=== PATIENT | female | born 2000 | race African-American/Black ===

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

== ENCOUNTER 2019-03-11 14:34 | Emergency (ER) | payer OTHER ==
[~2019-03-11] VITALS: Ht 163.8 cm; Wt 56.7 kg
[2019-03-11] MEDS ORDERED: Morphine Sulfate 2mg/ml Inj(IV/IM USE ONLY) IVP ONE ×2 (15:15→17:00)
[2019-03-11] MEDS ORDERED: Metoclopramide 10mg/2ml Inj IVP ONE ×2 (15:15→17:00)
--- NOTE | 2019-03-11 15:39 | NUR ---
ED Nurse Note: Patient vomited x 1, yellow emesis with undigested food. Provided emesis bag. Addendum: 03/11/19 at 1544 by MATTHEW PA notified and aware.
[2019-03-11 15:43] LABS: BASOPHILS % (AUTO) 0.8 % (0.0-2.0); LYMPHOCYTES % (AUTO) 13.4 % (20.0-45.0); MEAN CORPUSCULAR VOLUME 84 FL (80-99); MONOCYTES % (AUTO) 2.7 % (1.0-10.0); NEUTROPHILS % (AUTO) 83.2 % (45.0-75.0); PLATELET COUNT 277 K/UL (150-450); RED CELL DISTRIBUTION WIDTH 10.2 % (11.6-14.8); WHITE BLOOD COUNT 7.2 K/UL (4.8-10.8)
[2019-03-11 15:45] LABS: ANION GAP 16 mmol/L (5-15); BLOOD UREA NITROGEN 3 mg/dL (7-18); CALCIUM 10.2 MG/DL (8.5-10.1); CARBON DIOXIDE 19 MMOL/L (21-32); CHLORIDE 104 MMOL/L (98-107); CREATININE 0.6 MG/DL (0.55-1.30); POTASSIUM 4.3 MMOL/L (3.5-5.1); SODIUM 139 MMOL/L (136-145)
[2019-03-11 15:49] LABS: ALANINE AMINOTRANSFERASE 12 U/L (12-78); ALBUMIN 4.8 G/DL (3.4-5.0); ALBUMIN/GLOBULIN RATIO 1.3 (1.0-2.7); ALKALINE PHOSPHATASE 59 U/L (46-116); ASPARTATE AMINO TRANSFERASE 14 U/L (15-37); BILIRUBIN,TOTAL 0.5 MG/DL (0.2-1.0)
[2019-03-11 15:50] LABS: APPEARANCE,URINE SLIGHTLY CLOUDY; BILIRUBIN, URINE NEGATIVE (NEGATIVE); COLOR,URINE YELLOW; GLUCOSE, URINE (UA) NEGATIVE (NEGATIVE); KETONES,URINE 4+ (NEGATIVE); LEUKOCYTE ESTERASE ,URINE 1+ (NEGATIVE); NITRITE,URINE NEGATIVE (NEGATIVE); PH,URINE 8 (4.5-8.0); PROTEIN,URINE 1+ (NEGATIVE); UROBILINOGEN,URINE NORMAL MG/DL (0.0-1.0)
--- NOTE | 2019-03-11 15:57 | NUR ---
ED Nurse Note: U/S tech at bedside.
--- NOTE | 2019-03-11 16:43 | Emergency Room Report ---
History of Present Illness General Chief Complaint: Complications Source: Medical Record Present Illness HPI 18-year-old female with history of heavy tobacco smoke ER complaining of abdominal pain and multiple bouts of emesis that started this morning. Patient is 7 weeks and is G1, P0. Patient reports that she has not yet seen an ACOU[facility]IC INTELLIGENCE SPECIALIST and has not started her vitamins. Patient reports that she continues to smoke tobacco and drink alcohol. Patient denies vaginal bleeding and spotting. She reports that she just found out last week that she is last menstrual period was 7 weeks ago. Denies diarrhea, constipation, bloody emesis. Denies fever and chills, syncope, headache and dizziness. Patient is in moderate distress requesting pain medication and reporting that due to multiple bouts of emesis she has increased abdominal pain however denies cramping. Denies chest pain, shortness of breath, palpitation, urinary frequency, vaginal discharge. Is up-to-date with her immunization. Allergies: Coded Allergies: No Known Allergies (Unverified , 11/15/13) Patient History Past Medical History: see triage record Past Surgical History: unable to obtain Pertinent Family History: none Social History: Reports: smoking Last Menstrual Period: 01/31/19 Now: Yes Immunizations: UTD Reviewed Nursing Documentation: PMH: Agreed; PSxH: Agreed Nursing Documentation-PMH Past Medical History: No History, Except For Hx Cardiac Problems: No - Herpes Review of Systems All Other Systems: negative except mentioned in HPI Physical Exam Vital Signs Date Time Temp Pulse Resp B/P (MAP) Pulse Ox O2 Delivery O2 Flow Rate FiO2 03/11/19 14:40 97.5 60 18 113/64 (80) 100 Room Air Sp02 EP Interpretation: reviewed, normal General Appearance: no apparent distress, alert, GCS 15, non-toxic Head: normocephalic, atraumatic Eyes: bilateral eye normal inspection, bilateral eye PERRL ENT: hearing grossly normal, normal pharynx, no angioedema, normal voice Neck: full range of motion, supple/symm/no masses Respiratory: chest non-tender, lungs clear, normal breath sounds, no rhonchi, speaking full sentences Cardiovascular #1: regular rate, rhythm, no edema, no murmur Gastrointestinal: normal bowel sounds, non tender, soft, no mass, no organomegaly, no peritonitis, no bruit, non-distended, no guarding, no rebound, other - Negative McBurney's and Rovsing's Genitourinary: no CVA tenderness Musculoskeletal: back normal, gait/station normal, normal range of motion, non- tender, no calf tenderness Neurologic: alert, oriented x3, responsive, motor strength/tone normal, sensory intact, speech normal Psychiatric: judgement/insight normal, memory normal, mood/affect normal, no suicidal/homicidal ideation Skin: no rash Lymphatic: no adenopathy Medical Decision Making PA Attestation All diagnoses and treatment plans were reviewed and discussed with my supervising physician Dr. Acuna Diagnostic Impression: Primary Impression: Hyperemesis gravidarum Additional Impression: UTI (urinary tract infection) ER Course 18-year-old female with history of heavy tobacco smoke ER complaining of abdominal pain and multiple bouts of emesis that started this morning. Patient is 7 weeks and is G1, P0. Patient reports that she has not yet seen an AC[facility]IC INTELLIGENCE SPECIALIST and has not started her vitamins. Patient reports that she continues to smoke tobacco and drink alcohol. Patient denies vaginal bleeding and spotting. She reports that she just found out last week that she is last menstrual period was 7 weeks ago. Denies diarrhea, constipation, bloody emesis. Denies fever and chills, syncope, headache and dizziness. Patient is in moderate distress requesting pain medication and reporting that due to multiple bouts of emesis she has increased abdominal pain however denies cramping. Denies chest pain, shortness of breath, palpitation, urinary frequency, vaginal discharge. Is up-to-date with her immunization. Ddx considered but are not limited to: appendicitis, cholecystis, gastritis, gastroenteritis, UTI, pyelonephritis, SBO, diverticulitis, influenza with GI manifestation, ectopic , complication with , threatened , abdominal pain during , hyperemesis gravidarum Vital signs: are WNL, pt. is afebrile H&PE are most consistent with: Hyperemesis gravidarum, UTI ORDERS: , OB ultrasound, CBC, UA, tox, beta-hCG, reglan, tylenol , macrobid ED INTERVENTIONS: NS bolus, morphine, Reglan DISCHARGE: At this time pt. is stable for d/c to home. Will provide printed patient care instructions, and any necessary prescriptions. Care plan and follow up instructions have been discussed with the patient prior to discharge. Follow-up with your ACOU[facility] INTELLIGENCE SPECIALIST take medication as directed if worsening symptoms, worsening abdominal pain, syncope, vaginal bleeding or spotting return to the emergency room avoid smoking tobacco drinking alcohol. CT/MRI/US Diagnostic Results CT/MRI/US Diagnostic Results : Imaging Test Ordered: OB US Impression WNL, 7weeks , no subchorionic hemorrhage Last Vital Signs Date Time Temp Pulse Resp B/P (MAP) Pulse Ox O2 Delivery O2 Flow Rate FiO2 03/11/19 15:58 65 18 Room Air 03/11/19 15:57 97.6 03/11/19 14:40 113/64 (80) 100 Disposition: HOME, SELF-CARE Condition: Stable Referrals: [facility] (PCP) Patient Instructions: Hyperemesis Gravidarum, Urinary Tract Infection, Easy-to- Read Additional Instructions: Follow-up with your [facility] INTELLIGENCE SPECIALIST take medication as directed if worsening symptoms, worsening abdominal pain, syncope, vaginal bleeding or spotting return to the emergency room avoid smoking tobacco drinking alcohol. Tad Oneill Mar 11, 2019 16:43
[2019-03-11] MEDS ORDERED: PRENATAL VITAM1 EA10 PO (16:57)
[2019-03-11] MEDS ORDERED: NITROFURANTOIN100 M2 ORAL (16:57)
[2019-03-11] MEDS ORDERED: REGLAN10 MG ORAL (16:57)
[2019-03-11] MEDS ORDERED: ACETAMINOPHEN650 M2 ORAL (16:57)
[2019-03-11 17:13] VITALS: BP 102/52
--- NOTE | 2019-03-11 17:15 | NUR ---
ED Nurse Note: PATIENT IS BEING DISCHARGED FROM MEDICAL CARE. D/C INSTRUCTION AND PRESCRIPTION GIVEN TO PATIENT. REMOVED ID BAND AND IV. ALL QUESTIONS WERE ANSWERED. AMBULATED OUT WITH STEADY GAIT WITH ALL HER BELONGINGS.
--- NOTE | 2019-03-11 17:22 | Diagnostic Imaging Report ---
EXAM: US First Trimester, Transabdominal US , Transvaginal CLINICAL HISTORY: PAIN TECHNIQUE: Real-time transabdominal and transvaginal obstetrical ultrasound of the maternal pelvis and a first trimester with image documentation. Transvaginal imaging was used for better evaluation of the fetus and adnexa. COMPARISON: No relevant prior studies available. FINDINGS: Gestation: Early IUP with a yolk sac. pole and heart tones not yet visualized. Placenta/amniotic fluid: Cannot be adequately evaluated due to the early gestational age. Ovaries: Right ovary measures 2.9 x 2.0 cm. Dominant follicles. No complex lesion or torsion. Left ovary measures 3.6 x 2.2 cm. No complex lesion.. Free fluid: Some free fluid in the pelvis. IMPRESSION: Early IUP with a yolk sac. pole and heart tones not yet visualized. Follow-up.
== END 2019-03-11 17:16 | disposition home or self-care (01) ==
LOC: EMR 15:16
DX: O21.0 Mild hyperemesis gravidarum (principal); Z3A.01 Less than 8 weeks gestation of pregnancy; O23.41 Unspecified infection of urinary tract in pregnancy, first trimester
CPT/HCPCS: 36415; 76801; 76830; 80053; 80307; 80329; 81001; 81025; 84702; 85025; 86850; 86900; 86901; 96361; 96374; 96375; 99284; J2270; J2765

== ENCOUNTER 2019-03-13 11:24 | Emergency (ER) | payer SELFPAY ==
[~2019-03-13] VITALS: Ht 172.7 cm; Wt 56.7 kg
[~2019-03-13 11:24] MED LIST changes: +ACETAMINOPHEN650 M2 ORAL; +NITROFURANTOIN100 M2 ORAL; +PRENATAL VITAM1 EA10 PO; +REGLAN10 MG ORAL
[2019-03-13] MEDS ORDERED: Metoclopramide 10mg/2ml Inj IVP ONE (11:45)
[2019-03-13] MEDS ORDERED: DiphenhydrAMINE 50mg/ml Inj IVP ONE (12:15)
[2019-03-13] MEDS ORDERED: D5 1/2NS w/KCl 20mEq 1,000 ML IV SCH (12:15)
--- NOTE | 2019-03-13 12:18 | NUR ---
Note undone in EDM - 03/13/19 at 1510 by LILLIANA ED Nurse Note: Patient laying in bed semi recumberent. Initially recieved by RN. eyes open spontaneously but patient drowsy. GCS spontaneous eye opening non verbal and no pain response at baseline per EMT/SNF. looks pale, feels warm to touch upper body and cool to touch lower body. Skin slightly moist. Fever reassessment as rteported as 108 by SNF VIA emt, rctal temp obtained by RN. Skin pressure area sore to sacrum, sore to left ear (wers b
--- NOTE | 2019-03-13 12:25 | NUR ---
ED Nurse Note: US tech at the bed side.
[2019-03-13 12:28] LABS: BASOPHILS % (AUTO) 1.3 % (0.0-2.0); HEMATOCRIT 38.3 % (37.0-47.0); HEMOGLOBIN 12.8 G/DL (12.0-16.0); LYMPHOCYTES % (AUTO) 22.4 % (20.0-45.0); MEAN CORPUSCULAR VOLUME 88 FL (80-99); MONOCYTES % (AUTO) 6.1 % (1.0-10.0); NEUTROPHILS % (AUTO) 70.2 % (45.0-75.0); PLATELET COUNT 276 K/UL (150-450); RED BLOOD COUNT 4.38 M/UL (4.20-5.40); RED CELL DISTRIBUTION WIDTH 10.9 % (11.6-14.8); WHITE BLOOD COUNT 6.8 K/UL (4.8-10.8)
[2019-03-13 12:36] LABS: ANION GAP 16 mmol/L (5-15); BLOOD UREA NITROGEN 6 mg/dL (7-18); CALCIUM 9.7 MG/DL (8.5-10.1); CARBON DIOXIDE 19 MMOL/L (21-32); CHLORIDE 106 MMOL/L (98-107); CREATININE 0.6 MG/DL (0.55-1.30); POTASSIUM 3.5 MMOL/L (3.5-5.1); SODIUM 141 MMOL/L (136-145)
[2019-03-13 12:40] LABS: ALANINE AMINOTRANSFERASE 12 U/L (12-78); ALBUMIN 4.5 G/DL (3.4-5.0); ALBUMIN/GLOBULIN RATIO 1.2 (1.0-2.7); ALKALINE PHOSPHATASE 52 U/L (46-116); ASPARTATE AMINO TRANSFERASE 15 U/L (15-37); BILIRUBIN,TOTAL 0.4 MG/DL (0.2-1.0)
--- NOTE | 2019-03-13 12:54 | NUR ---
ED Nurse Note: pt requested for more pain medication. ERMD at bedside.
[2019-03-13] MEDS ORDERED: Capsaicin 0.075% Cream TOPIC ONE (13:00)
--- NOTE | 2019-03-13 13:43 | Emergency Room Report ---
History of Present Illness General Chief Complaint: Complications Source: Patient Present Illness HPI This is a 18-year-old female presented after increased generalized abdominal pain and vomiting. Patient had been at this facility several days ago. She was noted to have increased generalized abdominal discomfort as well as multiple episodes of vomiting. She denies any hematemesis. She had reportedly had ultrasound which showed intrauterine 2 days ago. She denies any fever. She reports having multiple episodes of emesis not associated with diarrhea. Patient denies any fever. She reports having some generalized epigastric pain. This had not migrated.She was unable to localize the pain. Patient states that she smokes marijuana daily. Allergies: Coded Allergies: No Known Allergies (Unverified , 11/15/13) Patient History Past Medical History: see triage record Now: Yes Reviewed Nursing Documentation: PMH: Agreed; PSxH: Agreed Nursing Documentation-PMH Past Medical History: No History, Except For Hx Cardiac Problems: No - Herpes Review of Systems All Other Systems: negative except mentioned in HPI Physical Exam Vital Signs Date Time Temp Pulse Resp B/P (MAP) Pulse Ox O2 Delivery O2 Flow Rate FiO2 03/13/19 11:31 97.7 62 20 100 Room Air Sp02 EP Interpretation: reviewed, normal General Appearance: normal inspection, well appearing, no apparent distress, alert, GCS 15, non-toxic Head: atraumatic ENT: normal ENT inspection, hearing grossly normal, normal voice Neck: normal inspection, full range of motion, supple, no bony tend Respiratory: normal inspection, lungs clear, normal breath sounds, no respiratory distress, no retraction, no wheezing Cardiovascular #1: regular rate, rhythm, no edema Gastrointestinal: normal inspection, normal bowel sounds, non tender, soft, no guarding, no hernia Genitourinary: no CVA tenderness Musculoskeletal: normal inspection, back normal, normal range of motion Neurologic: normal inspection, alert, oriented x3, responsive, insole bottom filler III-XII nml as tested, speech normal Psychiatric: normal inspection, judgement/insight normal, mood/affect normal Medical Decision Making Diagnostic Impression: Primary Impression: Hyperemesis gravidarum ER Course Patient presented for abdominal pain. Differential diagnoses included ischemic bowel, appendicitis, perforated viscus, abdominal aortic aneurysm, inferior myocardial infarction, viral gastroenteritis among others. Because of complexity of patient's case laboratory testing and imaging studies were ordered. Patient was noted to have initial emesis. She was started on IV fluids. Patient was also noted to have some chronic marijuana use. This may represent marijuana induced hyperemesis in addition to related to hyperemesis. Patient was given capsaicin cream as well as Benadryl and Pepcid. She was noted to have some improvement.Patient was advised to discontinue smoking marijuana. Patient advised to return if she began having persistent vomiting or other concerns. She was given prescription for Zofran. Labs Test 03/13/19 11:50 White Blood Count 6.8 K/UL (4.8-10.8) Red Blood Count 4.38 M/UL (4.20-5.40) Hemoglobin 12.8 G/DL (12.0-16.0) Hematocrit 38.3 % (37.0-47.0) Mean Corpuscular Volume 88 FL (80-99) Mean Corpuscular Hemoglobin 29.2 PG (27.0-31.0) Mean Corpuscular Hemoglobin Concent 33.4 G/DL (32.0-36.0) Red Cell Distribution Width 10.9 % (11.6-14.8) Platelet Count 276 K/UL (150-450) Mean Platelet Volume 5.6 FL (6.5-10.1) Neutrophils (%) (Auto) 70.2 % (45.0-75.0) Lymphocytes (%) (Auto) 22.4 % (20.0-45.0) Monocytes (%) (Auto) 6.1 % (1.0-10.0) Eosinophils (%) (Auto) 0.0 % (0.0-3.0) Basophils (%) (Auto) 1.3 % (0.0-2.0) Prothrombin Time 10.9 SEC (9.30-11.50) Prothromb Time International Ratio 1.0 (0.9-1.1) Activated Partial Thromboplast Time 26 SEC (23-33) Sodium Level 141 MMOL/L (136-145) Potassium Level 3.5 MMOL/L (3.5-5.1) Chloride Level 106 MMOL/L (98-107) Carbon Dioxide Level 19 MMOL/L (21-32) Anion Gap 16 mmol/L (5-15) Blood Urea Nitrogen 6 mg/dL (7-18) Creatinine 0.6 MG/DL (0.55-1.30) Estimat Glomerular Filtration Rate > 60 mL/min (>60) Glucose Level 101 MG/DL (74-106) Calcium Level 9.7 MG/DL (8.5-10.1) Total Bilirubin 0.4 MG/DL (0.2-1.0) Aspartate Amino Transf (AST/SGOT) 15 U/L (15-37) Alanine Aminotransferase (ALT/SGPT) 12 U/L (12-78) Alkaline Phosphatase 52 U/L (46-116) Total Protein 8.4 G/DL (6.4-8.2) Albumin 4.5 G/DL (3.4-5.0) Globulin 3.9 g/dL Albumin/Globulin Ratio 1.2 (1.0-2.7) Lipase 78 U/L (73-393) Human Chorionic Gonadotropin, Quant 03174 mIU/mL (1-6) Last Vital Signs Date Time Temp Pulse Resp B/P (MAP) Pulse Ox O2 Delivery O2 Flow Rate FiO2 03/13/19 11:31 97.7 62 20 100 Room Air Status: improved Disposition: HOME, SELF-CARE Condition: Stable Scripts Ondansetron Odt* (ZOFRAN ODT*) 4 Mg Tab.rapdis 4 MG BC EVERY 8 HOURS PRN for Nausea & Vomiting, #10 TAB 0 Refills Prov: Morenita Hitchcock 03/13/19 Referrals: NON PHYSICIAN (PCP) Patient Instructions: Hyperemesis Gravidarum Tristian Bryant MD Mar 13, 2019 13:43
--- NOTE | 2019-03-13 13:43 | Diagnostic Imaging Report ---
EXAM: US Abdomen Complete CLINICAL HISTORY: PAIN TECHNIQUE: Real-time ultrasound of the abdomen (complete) with image documentation. COMPARISON: None FINDINGS: Liver: Measures 12.4 cm. Normal echotexture and contour. No focal lesion. Portal vein: Patent with normal direction of flow. Gallbladder: Normal. No wall thickening or pericholecystic fluid. No stone or sludge. Negative sonographic Morel's sign. Biliary tree: No abnormal dilatation. Common bile duct measures 3.7 mm. Pancreas: Visualized portions are unremarkable. Spleen: Normal, measuring 7.5 cm. No focal lesion. Right kidney: Measures 11.3 cm in length. No hydronephrosis or stone. No mass. Left kidney: Measures 11.2 cm in length. No hydronephrosis or stone. No mass. Peritoneal space: Normal. No free fluid. Aorta: Visualized portions are unremarkable. IVC: Visualized portions are unremarkable. IMPRESSION: Normal abdominal ultrasound.
[2019-03-13] MEDS ORDERED: ONDANSETRON ODT4 MG BC ×3 (14:14→16:41)
[2019-03-13 14:59] VITALS: BP 107/55
--- NOTE | 2019-03-13 15:01 | NUR ---
ER DISCHARGE NOTE: Patient is cleared to be discharged per ERMD with familiy member, pt is aox4, on room air, with stable vital signs. pt was given dc and prescription instructions, pt was able to verbalize understanding, pt id band and iv site removed without complications. pt is able to ambulate with steady gait. pt took all belongings.
== END 2019-03-13 15:02 | disposition home or self-care (01) ==
LOC: EMR 12:40
DX: O21.0 Mild hyperemesis gravidarum (principal); Z3A.01 Less than 8 weeks gestation of pregnancy; O99.321 Drug use complicating pregnancy, first trimester; F12.10 Cannabis abuse, uncomplicated
CPT/HCPCS: 36415; 76700; 80053; 83690; 84702; 85025; 85610; 85730; 86850; 86900; 86901; 96361; 96365; 96375; 99284; J1200; J2765; S0028

== ENCOUNTER 2019-03-13 21:21 | Inpatient (IN) | payer MEDICAID ==
[~2019-03-13] VITALS: Ht 162.6 cm; Wt 59.0 kg
[~2019-03-13 21:21] MED LIST changes: +ONDANSETRON ODT4 MG BC
[2019-03-13 21:39] VITALS: BP 119/63
--- NOTE | 2019-03-13 21:39 | NUR ---
ED Nurse Note: , patient is aggitated, and is accompanied by boyfriend.
--- NOTE | 2019-03-13 21:39 | NUR ---
ED Nurse Note: timoteo
--- NOTE | 2019-03-13 21:39 | NUR ---
ED Nurse Note: Walk-in patient with complaints of recurrent abdominal pain and emesis with pregnan
[2019-03-13] MEDS ORDERED: Potassium Chloride 10 MEQ in D5 1/2NS 1,000 ML IV SCH (22:00)
[2019-03-13] MEDS ORDERED: D5NS 1,000 ML IV SCH (22:15)
[2019-03-13] MEDS ORDERED: Morphine Sulfate 2mg/ml Inj(IV/IM USE ONLY) IVP ONE (22:30)
[2019-03-13 22:58] LABS: BASOPHILS % (AUTO) 0.9 % (0.0-2.0); HEMATOCRIT 34.7 % (37.0-47.0); HEMOGLOBIN 12.3 G/DL (12.0-16.0); LYMPHOCYTES % (AUTO) 19.7 % (20.0-45.0); MEAN CORPUSCULAR VOLUME 84 FL (80-99); MONOCYTES % (AUTO) 5.2 % (1.0-10.0); NEUTROPHILS % (AUTO) 74.1 % (45.0-75.0); PLATELET COUNT 279 K/UL (150-450); RED BLOOD COUNT 4.15 M/UL (4.20-5.40); RED CELL DISTRIBUTION WIDTH 10.3 % (11.6-14.8); WHITE BLOOD COUNT 12.6 K/UL (4.8-10.8)
--- NOTE | 2019-03-13 23:02 | NUR ---
ED Nurse Note: Patient tolerated medication administration well, IV fluids hung, all blood and urine collections sent down to lab, will continue to monitor. Vital signs stable and documented.
[2019-03-13 23:03] VITALS: BP 108/68
[2019-03-13 23:06] LABS: BILIRUBIN, URINE NEGATIVE (NEGATIVE); COLOR,URINE PALE YELLOW; GLUCOSE, URINE (UA) NEGATIVE (NEGATIVE); KETONES,URINE 4+ (NEGATIVE); LEUKOCYTE ESTERASE ,URINE 1+ (NEGATIVE); NITRITE,URINE NEGATIVE (NEGATIVE); PH,URINE 8 (4.5-8.0); PROTEIN,URINE NEGATIVE (NEGATIVE); UROBILINOGEN,URINE NORMAL MG/DL (0.0-1.0)
[2019-03-13 23:19] LABS: ANION GAP 15 mmol/L (5-15); BLOOD UREA NITROGEN 3 mg/dL (7-18); CALCIUM 9.6 MG/DL (8.5-10.1); CARBON DIOXIDE 20 MMOL/L (21-32); CHLORIDE 100 MMOL/L (98-107); CREATININE 0.6 MG/DL (0.55-1.30); POTASSIUM 3.8 MMOL/L (3.5-5.1); SODIUM 135 MMOL/L (136-145)
[2019-03-13 23:21] LABS: APPEARANCE,URINE CLEAR
[2019-03-13 23:24] LABS: ALANINE AMINOTRANSFERASE 12 U/L (12-78); ALBUMIN 4.6 G/DL (3.4-5.0); ALBUMIN/GLOBULIN RATIO 1.1 (1.0-2.7); ALKALINE PHOSPHATASE 59 U/L (46-116); ASPARTATE AMINO TRANSFERASE 20 U/L (15-37); BILIRUBIN,TOTAL 0.7 MG/DL (0.2-1.0)
[2019-03-14] MEDS ORDERED: Metoclopramide 10mg/2ml Inj IVP ONE
[2019-03-14] MEDS: DiphenhydrAMINE 50mg/ml Inj IVP ONE ×2 (00:06→00:11)
--- NOTE | 2019-03-14 00:18 | NUR ---
ED Nurse Note: Called and gave report to Vita LOW.
[2019-03-14 00:25] VITALS: BP 121/77
--- NOTE | 2019-03-14 00:45 | NUR ---
NURSE NOTES: Received report from MARANDA Ellis in ED. Patient arrived to the unit by nic. Awake and alert x4. Stable condition. On room air with no signs of distress or SOB. Skin is intact. Belongings checked with patient. Left AC IV is intact and running fluids. Bed locked and in lowest position with call light in easy reach. Boyfriend at bedside. Orders received from Dr. Gutierrez and carried out. Patient c/o pain 01/19. Will administer pain medication as ordered. VS - BP:121/77 RR:18 02:100% HR:55 T:99.3
[2019-03-14] MEDS: Morphine Sulfate 2mg/ml Inj(IV/IM USE ONLY) IVP PRN ×3 (01:11→10:52)
[2019-03-14] MEDS: D5NS 1,000 ML IV SCH ×2 (01:11→10:52)
[2019-03-14 04:00] VITALS: BP 117/73
[2019-03-14] MEDS: Metoclopramide 10mg/2ml Inj IVP PRN ×2 (04:31→09:09)
--- NOTE | 2019-03-14 07:31 | NUR ---
HAND-OFF: Report given to MARANDA Cosme. Patient in stable condition.
[2019-03-14 07:32] LABS: BASOPHILS % (AUTO) 0.8 % (0.0-2.0); EOSINOPHILS % (AUTO) 0.1 % (0.0-3.0); HEMATOCRIT 28.6 % (37.0-47.0); HEMOGLOBIN 10.2 G/DL (12.0-16.0); LYMPHOCYTES % (AUTO) 23.9 % (20.0-45.0); MEAN CORPUSCULAR VOLUME 84 FL (80-99); MONOCYTES % (AUTO) 8.5 % (1.0-10.0); NEUTROPHILS % (AUTO) 66.7 % (45.0-75.0); PLATELET COUNT 230 K/UL (150-450); RED BLOOD COUNT 3.42 M/UL (4.20-5.40); RED CELL DISTRIBUTION WIDTH 10.1 % (11.6-14.8); WHITE BLOOD COUNT 10.5 K/UL (4.8-10.8)
[2019-03-14 07:50] LABS: ALANINE AMINOTRANSFERASE 12 U/L (12-78); ALBUMIN 3.5 G/DL (3.4-5.0); ALBUMIN/GLOBULIN RATIO 1.1 (1.0-2.7); ALKALINE PHOSPHATASE 43 U/L (46-116); ANION GAP 13 mmol/L (5-15); ASPARTATE AMINO TRANSFERASE 13 U/L (15-37); BILIRUBIN,TOTAL 0.5 MG/DL (0.2-1.0); BLOOD UREA NITROGEN 1 mg/dL (7-18); CALCIUM 8.5 MG/DL (8.5-10.1); CARBON DIOXIDE 20 MMOL/L (21-32); CHLORIDE 107 MMOL/L (98-107); CREATININE 0.5 MG/DL (0.55-1.30); POTASSIUM 3.2 MMOL/L (3.5-5.1); SODIUM 140 MMOL/L (136-145)
[2019-03-14 08:00] VITALS: BP 128/71
--- NOTE | 2019-03-14 08:59 | History & Physical ---
History and Physical History & Physicial seen and examined. Dictation completed 1- Hyperemesis Gravidarum Plan: medically stable Defer to Anne Marie Bran MD Mar 14, 2019 08:59
[2019-03-14] MEDS ORDERED: Ketorolac 30mg Inj IV SCH (09:00)
--- NOTE | 2019-03-14 09:00 | NUR ---
NURSE NOTES: Patient in bed awake and able to verbalize needs.. Stable. Denies pain or SOB. Patient encouraged to use call light for assistance, verbalized understanding. Patient in bed in locked and lowest position with call light within reach. Will continue to monitor.
--- NOTE | 2019-03-14 10:06 | Emergency Room Report ---
History of Present Illness General Chief Complaint: Nausea Source: Patient Present Illness HPI The patient presents with persistent vomiting and nausea. She is . She been evaluated 2 times before in the emergency department. An ultrasound was performed previously. She alleges that she has no medication to treat the nausea at this time. The pain is rated 10/10 diffuse in her abdomen but more in the epigastric region. She denies fevers or chills. She feels weak when she stands up. She denies vaginal bleeding. There are no rashes or painful lesions. This is the assesment 03/11: 18-year-old female with history of heavy tobacco smoke ER complaining of abdominal pain and multiple bouts of emesis that started this morning. Patient is 7 weeks and is G1, P0. Patient reports that she has not yet seen an SALES ASSISTANT DISPLAYS and has not started her vitamins. Patient reports that she continues to smoke tobacco and drink alcohol. Patient denies vaginal bleeding and spotting. She reports that she just found out last week that she is last menstrual period was 7 weeks ago. Denies diarrhea, constipation, bloody emesis. Denies fever and chills, syncope, headache and dizziness. Patient is in moderate distress requesting pain medication and reporting that due to multiple bouts of emesis she has increased abdominal pain however denies cramping. Denies chest pain, shortness of breath, palpitation, urinary frequency, vaginal discharge. Is up-to-date with her immunization. Ddx considered but are not limited to: appendicitis, cholecystis, gastritis, gastroenteritis, UTI, pyelonephritis, SBO, diverticulitis, influenza with GI manifestation, ectopic , complication with , threatened , abdominal pain during , hyperemesis gravidarum Vital signs: are WNL, pt. is afebrile H&PE are most consistent with: Hyperemesis gravidarum, UTI ORDERS: , OB ultrasound, CBC, UA, tox, beta-hCG, reglan, tylenol , macrobid ED INTERVENTIONS: NS bolus, morphine, Reglan Ultrasound: IMPRESSION: Early IUP with a yolk sac. pole and heart tones not yet visualized. Follow-up. This is the assessment earlier today: Patient presented for abdominal pain. Differential diagnoses included ischemic bowel, appendicitis, perforated viscus, abdominal aortic aneurysm, inferior myocardial infarction, viral gastroenteritis among others. Because of complexity of patient's case laboratory testing and imaging studies were ordered. Patient was noted to have initial emesis. She was started on IV fluids. Patient was also noted to have some chronic marijuana use. This may represent marijuana induced hyperemesis in addition to related to hyperemesis. Patient was given capsaicin cream as well as Benadryl and Pepcid. She was noted to have some improvement.Patient was advised to discontinue smoking marijuana. Patient advised to return if she began having persistent vomiting or other concerns. She was given prescription for Zofran. Ultrasound abd: IMPRESSION: Normal abdominal ultrasound. Patient has a history of genital herpes and does not want significant other to know. No fevers, chills, sore throat, chest pain, palpitations,diarrhea, dysuria, shortness of breath, joint pain, rashes, depression, anxiety, visual changes, headache. Allergies: Coded Allergies: No Known Allergies (Unverified , 11/15/13) Patient History Past Medical History: see triage record, old chart reviewed Social History: Reports: smoking, drug use - THC Social History Narrative With significant other Now: Yes - 7 WEEKS Reviewed Nursing Documentation: PMH: Agreed; PSxH: Agreed Nursing Documentation-PMH Past Medical History: No History, Except For Hx Cardiac Problems: No Review of Systems All Other Systems: negative except mentioned in HPI Physical Exam Vital Signs Date Time Temp Pulse Resp B/P (MAP) Pulse Ox O2 Delivery O2 Flow Rate FiO2 03/13/19 21:34 98.2 64 22 119/63 (81) 100 Room Air Sp02 EP Interpretation: reviewed, normal General Appearance: well appearing, no apparent distress, GCS 15, non-toxic, other - On cell phone Head: normocephalic Eyes: bilateral eye normal inspection, bilateral eye PERRL, bilateral eye EOMI ENT: moist mucus membranes Neck: supple Respiratory: lungs clear, normal breath sounds Cardiovascular #1: regular rate, rhythm Cardiovascular #2: 2+ radial (R) Gastrointestinal: normal inspection, normal bowel sounds, no mass, non- distended, no guarding, no rebound, tenderness - Diffuse Genitourinary: no CVA tenderness Musculoskeletal: back normal, gait/station normal, normal range of motion Neurologic: alert, oriented x3, grossly normal Psychiatric: mood/affect normal, other - Slightly demanding Skin: no rash Medical Decision Making Diagnostic Impression: Primary Impression: Hyperemesis gravidarum Additional Impressions: Nausea and vomiting in 7 weeks gestation of ER Course Patient presents with persistent vomiting unable to keep down liquids and abdominal pain. Differential includes hyperemesis gravidarum, electrolyte imbalance, threatened miscarriage amongst others. The patient will be evaluated with labs. Ultrasound previously performed. Abdomen is nonsurgical at this time. The patient will be treated with normal saline, D5 normal saline , small dose of morphine with continued IV hydration. Imaging is not necessary as it was recently done. Labs significant for leukocytosis. Also urine with positive ketones. Prior urinalysis looks like contaminated specimen. Patient continues with nausea and Reglan and Benadryl are administered. Pain is improved. Due to the presence of hyperemesis gravidarum with ketonuria patient is admitted to the hospital for continued IV hydration and treatment with medication. Admit to Dr. Gutierrez. Consultation requested of . Laboratory Tests Test 03/13/19 22:09 03/13/19 22:15 03/14/19 05:10 White Blood Count 12.6 K/UL (4.8-10.8) #H 10.5 K/UL (4.8-10.8) Red Blood Count 4.15 M/UL (4.20-5.40) L 3.42 M/UL (4.20-5.40) L Hemoglobin 12.3 G/DL (12.0-16.0) 10.2 G/DL (12.0-16.0) L Hematocrit 34.7 % (37.0-47.0) L 28.6 % (37.0-47.0) L Mean Corpuscular Volume 84 FL (80-99) 84 FL (80-99) Mean Corpuscular Hemoglobin 29.7 PG (27.0-31.0) 29.9 PG (27.0-31.0) Mean Corpuscular Hemoglobin Concent 35.5 G/DL (32.0-36.0) 35.8 G/DL (32.0-36.0) Red Cell Distribution Width 10.3 % (11.6-14.8) L 10.1 % (11.6-14.8) L Platelet Count 279 K/UL (150-450) 230 K/UL (150-450) Mean Platelet Volume 5.6 FL (6.5-10.1) L 5.5 FL (6.5-10.1) L Neutrophils (%) (Auto) 74.1 % (45.0-75.0) 66.7 % (45.0-75.0) Lymphocytes (%) (Auto) 19.7 % (20.0-45.0) L 23.9 % (20.0-45.0) Monocytes (%) (Auto) 5.2 % (1.0-10.0) 8.5 % (1.0-10.0) Eosinophils (%) (Auto) 0.0 % (0.0-3.0) 0.1 % (0.0-3.0) Basophils (%) (Auto) 0.9 % (0.0-2.0) 0.8 % (0.0-2.0) Sodium Level 135 MMOL/L (136-145) L 140 MMOL/L (136-145) Potassium Level 3.8 MMOL/L (3.5-5.1) 3.2 MMOL/L (3.5-5.1) L Chloride Level 100 MMOL/L (98-107) 107 MMOL/L (98-107) Carbon Dioxide Level 20 MMOL/L (21-32) L 20 MMOL/L (21-32) L Anion Gap 15 mmol/L (5-15) 13 mmol/L (5-15) Blood Urea Nitrogen 3 mg/dL (7-18) L 1 mg/dL (7-18) L Creatinine 0.6 MG/DL (0.55-1.30) 0.5 MG/DL (0.55-1.30) L Estimate Glomerular Filtration Rate > 60 mL/min (>60) > 60 mL/min (>60) Glucose Level 97 MG/DL (74-106) 106 MG/DL (74-106) Calcium Level 9.6 MG/DL (8.5-10.1) 8.5 MG/DL (8.5-10.1) Total Bilirubin 0.7 MG/DL (0.2-1.0) 0.5 MG/DL (0.2-1.0) Aspartate Amino Transferase (AST) 20 U/L (15-37) 13 U/L (15-37) L Alanine Aminotransferase (ALT) 12 U/L (12-78) 12 U/L (12-78) Alkaline Phosphatase 59 U/L (46-116) 43 U/L (46-116) L Total Protein 8.8 G/DL (6.4-8.2) H 6.6 G/DL (6.4-8.2) Albumin 4.6 G/DL (3.4-5.0) 3.5 G/DL (3.4-5.0) Globulin 4.2 g/dL 3.1 g/dL Albumin/Globulin Ratio 1.1 (1.0-2.7) 1.1 (1.0-2.7) Lipase 90 U/L (73-393) Urine Color Pale yellow Urine Appearance Clear Urine pH 8 (4.5-8.0) Urine Specific [place] 1.015 (1.005-1.035) Urine Protein Negative (NEGATIVE) Urine Glucose (UA) Negative (NEGATIVE) Urine Ketones 4+ (NEGATIVE) H Urine Blood Negative (NEGATIVE) Urine Nitrite Negative (NEGATIVE) Urine Bilirubin Negative (NEGATIVE) Urine Urobilinogen Normal MG/DL (0.0-1.0) Urine Leukocyte Esterase 1+ (NEGATIVE) H Urine RBC 0-2 /HPF (0 - 2) Urine WBC 0-2 /HPF (0 - 2) Urine Squamous Epithelial Cells Few /LPF (NONE/OCC) Urine Bacteria None /HPF (NONE) Human Chorionic Gonadotropin, Qual Positive (NEGATIVE) CT/MRI/US Diagnostic Results CT/MRI/US Diagnostic Results : Imaging Test Ordered: Ultrasound pelvic and abdomen Impression See prior reports and history Last Vital Signs Date Time Temp Pulse Resp B/P (MAP) Pulse Ox O2 Delivery O2 Flow Rate FiO2 03/14/19 04:00 97.6 61 18 117/73 (88) 99 03/14/19 00:59 Room Air Status: improved Disposition: ADMITTED INPATIENT Condition: Serious Referrals: NON PHYSICIAN (PCP) Kevin Acuna MD Mar 14, 2019 10:06
[2019-03-14 12:00] VITALS: BP 127/69
[2019-03-14] MEDS ORDERED: LR 1000ml 1,000 ML IV ONE (12:45)
[2019-03-14] MEDS ORDERED: LR 1000ml 1,000 ML IV SCH (12:45)
--- NOTE | 2019-03-14 13:15 | NUR ---
NURSE NOTES: Patient discharged home as ordered. Stable. Denies pain. Patient given thorough discharge instructions by RN. patient verbalized understanding. Patient stated that she will see her manager global tomorrow. Patient has all belongings. Patient assisted outside with significant other. No IV access. Patient sent home with information on and hyperemesis. Skin is clean, dry, and intact.
--- NOTE | 2019-03-14 16:30 | History and Physical Report ---
DATE OF ADMISSION: 03/13/2019 SOURCE OF INFORMATION: Patient and EMR. HISTORY OF PRESENT ILLNESS: The patient is a 18-year-old female. The patient reportedly is and is suffering from intolerable nausea and vomitus for the last 3 to 4 days. The patient reported adequate intake and could not hold any liquid given decrease in her stomach. Denies any hematemesis, denies any diarrhea. Denies any abdominal pain. Denies any bleeding per vagina. Initial vital signs in the emergency room shows a stable vital signs. Initial blood work shows leukocytosis, otherwise unremarkable. REVIEW OF SYSTEMS: All 14 elements of review of systems reviewed as above. PAST MEDICAL HISTORY: Unremarkable. PAST SURGICAL HISTORY: Denies. OUTPATIENT MEDICATIONS: Denies. ALLERGIES: NKDA. SOCIAL HISTORY: Reported . Denies history of illicit drug abuse. PHYSICAL EXAMINATION: VITAL SIGNS: Blood pressure 120/80, temperature 98.2, pulse oximetry 98% on room air, respiratory rate 18, temperature 98.2. HEAD AND NECK: Atraumatic, normocephalic. CHEST: Clear to auscultation. HEART: S1, S2. Regular rate and rhythm. ABDOMEN: Soft. No organomegaly. LABORATORY DATA: Dated 03/13/2019, WBC 12.6, hemoglobin 12.3. Sodium 135, BUN 3. ASSESSMENT: 1. Hyperemesis gravidarum. 2. Hyponatremia. 3. Leukocytosis with no evidence of active infection. PLAN OF CARE: The patient remains medically stable. I agree with the NPO, continue with IV hydration. OB has already been notified. We will follow. Anne Marie Gutierrez M.D. DR: TATIANNA JOB#: [id number] CC:
--- NOTE | 2019-03-15 07:43 | Discharge Summary ---
Discharge Summary Discharge Summary _ DATE OF ADMISSION: 03/13/2019 DATE OF DISCHARGE: 03/14/2019 DISCHARGED BY: Dr. Gutierrez REASON FOR ADMISSION: 18 years old female with unremarkable past medical history, reported being and suffering from intolerable nausea and vomiting for the last 3 to 4 days. Patient could not hold any liquids or food. She denies hematemesis , she denied diarrhea ,she denied blood in the stool. She denied abdominal pain . She denied vaginal bleeding . No fevers, no chills. No chest pain or shortness of breath . No dysuria . Initial vital signs in the emergency room were stable. Laboratory work-up revealed mild leukocytosis with WBC 12.6 , stable hemoglobin and hematocrit. Na-135. Stable renal parameters. Urinalysis revealed no evidence of urinary tract infection , but was positive for ketones. Abdominal ultrasound was stable. Patient received antiemetics in ED. Due to presence of hyperemesis gravidarum with ketonuria patient was admitted to the hospital for IV hydration. HOSPITAL COURSE: Patient admitted to medical surgical floor and started on IV hydration. Obstetrical ultrasound , done on her prior visit to ED on 03/12, for the same reason, revealed early intrauterine with a yolk sac. pole and heart tones were not yet visualized. HCG on 03/14 was positive. Patient was hydrated with IV hydration. Antiemetic provided as needed. Diet slowly started as tolerated. Vital signs remained stable. With IV hydration sodium from 135 up to 140. Leukocytosis resolved, likely was reactive. Patient remained afebrile. Patient was able to tolerate diet in small amounts. Patient was cleared for discharge home. Outpatient follow-up with HEAD OF HISTORY in the morning. Due to rapid and unexpected improvement in patient condition , patient was discharged in 1 day. FINAL DIAGNOSES: Hyperemesis gravidarum Hyponatremia Leukocytosis with no evidence of active infection-resolved DISCHARGE MEDICATIONS: See Medication Reconciliation list. DISCHARGE INSTRUCTIONS: Patient was discharged home. Patient was encouraged to see [facility] doctor in the morning. I have been assigned to dictate discharge summary for this account. I was not involved in the patient's management. Gabbi Evangelista NP Mar 15, 2019 07:43
== END 2019-03-14 13:15 | disposition home or self-care (01) | DRG 566 ==
LOC: EMR 21:49 → 3E 22:50 → EDBEDREQ 23:41
DX: O21.1 Hyperemesis gravidarum with metabolic disturbance (principal); Z3A.01 Less than 8 weeks gestation of pregnancy
CPT/HCPCS: 36415; 80053; 81003; 83690; 84703; 85025; 96361; 96365; 96375; 99285; J2765

== ENCOUNTER 2019-03-15 05:15 | Inpatient (IN) | payer MEDICAID ==
[~2019-03-15] VITALS: Ht 162.6 cm; Wt 57.6 kg
--- NOTE | 2019-03-15 05:38 | Emergency Room Report ---
History of Present Illness General Chief Complaint: Complications Source: Patient (Eladio Singh MD) Present Illness HPI This is a 18-year-old female who is primigravida. She is approximately 7 weeks . She presents with chief complaint abdominal pain with nausea and vomiting. This is an ongoing issue with this . She been him several times for this already. She was admitted and was just discharged. She presents with abdominal pain with multiple episode of vomiting. Unable to keep anything down. Has cramps and severe pain. Pain is 10 out of 10. Vomiting is nonbloody nonbilious. No diarrhea. Similar symptom in the past. She had ultrasound here already. (Eladio Singh MD) Allergies: Coded Allergies: No Known Allergies (Unverified , 11/15/13) Patient History Past Medical History: see triage record, old chart reviewed Past Surgical History: none Pertinent Family History: none Social History: Reports: drug use - marijuana; Denies: smoking Now: Yes - 7 weeks Immunizations: UTD Reviewed Nursing Documentation: PMH: Agreed; PSxH: Agreed (Eladio Singh MD) Nursing Documentation-PMH Past Medical History: No History, Except For (Eladio Singh MD) Review of Systems Eye: Denies: eye pain, blurred vision ENT: Denies: ear pain, nose congestion, throat swelling Respiratory: Denies: cough, shortness of breath Cardiovascular: Denies: chest pain, palpitations Gastrointestinal: Reports: abdominal pain, nausea, vomiting; Denies: diarrhea Musculoskeletal: Denies: back pain, joint pain Skin: Denies: rash Neurological: Denies: headache, numbness Endocrine: Denies: increased thirst, increased urine Hematologic/Lymphatic: Denies: easy bruising All Other Systems: negative except mentioned in HPI (Eladio Singh MD) Physical Exam Vital Signs Date Time Temp Pulse Resp B/P (MAP) Pulse Ox O2 Delivery O2 Flow Rate FiO2 03/15/19 05:17 98.2 59 16 131/78 (95) 96 Room Air Vitals normal Sp02 EP Interpretation: reviewed, normal General Appearance: well appearing, no apparent distress, alert Head: normocephalic, atraumatic Eyes: bilateral eye PERRL, bilateral eye EOMI ENT: hearing grossly normal, normal pharynx Neck: full range of motion, supple, no meningismus Respiratory: chest non-tender, lungs clear, normal breath sounds Cardiovascular #1: regular rate, rhythm, no murmur Gastrointestinal: no mass, no organomegaly, no bruit, non-distended, tenderness - Mild diffuse, decreased bowel sounds Musculoskeletal: back normal, gait/station normal, normal range of motion Neurologic: alert, oriented x3 Psychiatric: anxious (Eladio Singh MD) Medical Decision Making Diagnostic Impression: Primary Impression: Hyperemesis gravidarum Additional Impressions: Acute hypokalemia Abdominal pain Qualified Codes: R10.84 - Generalized abdominal pain ER Course Patient presents with hyperemesis gravidarum. Her beta-hCG is elevated but ultrasound only showed a gestational sac. My bedside ultrasound also showed just as of gestational sac. Did not see any heartbeat. This may be very early in the versus blighted ovum versus molar . I will repeat a pelvic ultrasound. Labs pending. Vomiting and pain improved after hydration, Reglan and morphine. If patient unable to keep anything down, will need admission. I will sign this patient out to Dr. Sharma. (Eladio Singh MD) ER Course Please refer to the initial note for the history exam and presentation on reevaluation patient still remains significantly nauseated I discussed the case with Dr. Pereira, Vit B6 has been added to her regimen Official ultrasound reveals intrauterine now progressed with evidence of heart tones appears to be 5-1/2 weeks Patient placed into admission for further inpatient care Labs Test 03/15/19 05:50 White Blood Count 6.8 K/UL (4.8-10.8) Red Blood Count 3.87 M/UL (4.20-5.40) Hemoglobin 11.6 G/DL (12.0-16.0) Hematocrit 33.8 % (37.0-47.0) Mean Corpuscular Volume 87 FL (80-99) Mean Corpuscular Hemoglobin 29.9 PG (27.0-31.0) Mean Corpuscular Hemoglobin Concent 34.2 G/DL (32.0-36.0) Red Cell Distribution Width 10.5 % (11.6-14.8) Platelet Count 247 K/UL (150-450) Mean Platelet Volume 6.2 FL (6.5-10.1) Neutrophils (%) (Auto) 59.5 % (45.0-75.0) Lymphocytes (%) (Auto) 29.3 % (20.0-45.0) Monocytes (%) (Auto) 10.0 % (1.0-10.0) Eosinophils (%) (Auto) 0.2 % (0.0-3.0) Basophils (%) (Auto) 1.0 % (0.0-2.0) Urine Color Pale yellow Urine Appearance Clear Urine pH 6.5 (4.5-8.0) Urine Specific [place] 1.015 (1.005-1.035) Urine Protein Negative (NEGATIVE) Urine Glucose (UA) Negative (NEGATIVE) Urine Ketones Negative (NEGATIVE) Urine Blood Negative (NEGATIVE) Urine Nitrite Negative (NEGATIVE) Urine Bilirubin Negative (NEGATIVE) Urine Urobilinogen Normal MG/DL (0.0-1.0) Urine Leukocyte Esterase 1+ (NEGATIVE) Urine RBC 0-2 /HPF (0 - 2) Urine WBC 2-4 /HPF (0 - 2) Urine Squamous Epithelial Cells Moderate /LPF (NONE/OCC) Urine Bacteria Few /HPF (NONE) Sodium Level 141 MMOL/L (136-145) Potassium Level 3.1 MMOL/L (3.5-5.1) Chloride Level 106 MMOL/L (98-107) Carbon Dioxide Level 21 MMOL/L (21-32) Anion Gap 14 mmol/L (5-15) Blood Urea Nitrogen 2 mg/dL (7-18) Creatinine 0.5 MG/DL (0.55-1.30) Estimat Glomerular Filtration Rate > 60 mL/min (>60) Glucose Level 99 MG/DL (74-106) Calcium Level 9.2 MG/DL (8.5-10.1) Human Chorionic Gonadotropin, Quant 23864 mIU/mL (1-6) (Miranda Sharma DO) CT/MRI/US Diagnostic Results CT/MRI/US Diagnostic Results : Imaging Test Ordered: US OB Impression Read by radiologist. 6 weeks IUP (Eladio Singh MD) CT/MRI/US Diagnostic Results : Impression Pelvic ultrasound : intrauterine , heart tone evident (Miranda Sharma DO) Last Vital Signs Date Time Temp Pulse Resp B/P (MAP) Pulse Ox O2 Delivery O2 Flow Rate FiO2 03/15/19 05:17 98.2 59 16 131/78 (95) 96 Room Air Status: improved (Eladio Singh MD) Status: improved (Miranda Sharma DO) Disposition: ADMITTED INPATIENT Condition: Serious Referrals: NON PHYSICIAN (PCP) Eladio Singh MD Mar 15, 2019 05:38 Miranda Sharma DO Mar 15, 2019 08:57
[2019-03-15] MEDS ORDERED: Metoclopramide 10mg/2ml Inj IVP ONE (05:45)
[2019-03-15] MEDS ORDERED: Morphine Sulfate 4mg/ml Inj (IV USE ONLY) IVP ONE ×3 (05:45→06:00)
[2019-03-15] MEDS ORDERED: D5NS 1,000 ML IV ONE (05:45)
--- NOTE | 2019-03-15 05:58 | NUR ---
ED Nurse Note: Patient walked in to ER from home due to N/V. Stated that 7 weeks preagnant and can not keep anythyng down. AAO x4, VSS at this time, skin is dry, warm to touch.
[2019-03-15 06:01] LABS: APPEARANCE,URINE CLEAR; BILIRUBIN, URINE NEGATIVE (NEGATIVE); COLOR,URINE PALE YELLOW; GLUCOSE, URINE (UA) NEGATIVE (NEGATIVE); KETONES,URINE NEGATIVE (NEGATIVE); LEUKOCYTE ESTERASE ,URINE 1+ (NEGATIVE); NITRITE,URINE NEGATIVE (NEGATIVE); PH,URINE 6.5 (4.5-8.0); PROTEIN,URINE NEGATIVE (NEGATIVE); UROBILINOGEN,URINE NORMAL MG/DL (0.0-1.0)
[2019-03-15 06:12] LABS: ANION GAP 14 mmol/L (5-15); BLOOD UREA NITROGEN 2 mg/dL (7-18); CALCIUM 9.2 MG/DL (8.5-10.1); CARBON DIOXIDE 21 MMOL/L (21-32); CHLORIDE 106 MMOL/L (98-107); CREATININE 0.5 MG/DL (0.55-1.30); POTASSIUM 3.1 MMOL/L (3.5-5.1); SODIUM 141 MMOL/L (136-145)
[2019-03-15 06:14] LABS: EOSINOPHILS % (AUTO) 0.2 % (0.0-3.0); HEMATOCRIT 33.8 % (37.0-47.0); HEMOGLOBIN 11.6 G/DL (12.0-16.0); LYMPHOCYTES % (AUTO) 29.3 % (20.0-45.0); MEAN CORPUSCULAR VOLUME 87 FL (80-99); NEUTROPHILS % (AUTO) 59.5 % (45.0-75.0); PLATELET COUNT 247 K/UL (150-450); RED BLOOD COUNT 3.87 M/UL (4.20-5.40); RED CELL DISTRIBUTION WIDTH 10.5 % (11.6-14.8); WHITE BLOOD COUNT 6.8 K/UL (4.8-10.8)
--- NOTE | 2019-03-15 06:37 | NUR ---
ED Nurse Note: Patient is anxious, keep asking for pain medication. After 8 mg of Morphine, stated that pain still here. Skreaming, asking to remove her IV.
--- NOTE | 2019-03-15 07:16 | NUR ---
ED Nurse Note: PT LAYING PEACEFULLY IN BED IN NAD. AOX4. REPORT ALREADY GIVEN TO MARANDA VELÁSQUEZ IN MS UNIT BY MARANDA PATEL. PT AWAITING ULTRASOUND BEFORE BEING TRANSFERRED TO ROOM.
--- NOTE | 2019-03-15 07:23 | NUR ---
ED Nurse Note: ULTRASOUND AT BEDSIDE.
--- NOTE | 2019-03-15 07:30 | NUR ---
NURSE NOTES: REPORT RECEIVED FROM JORGE ASSEMBLY LINE DRIVER. AWAITING PATIENT ARRIVAL TO FLOOR TO ROOM 312-1.
--- NOTE | 2019-03-15 08:30 | NUR ---
ED Nurse Note: ULTRASOUND COMPLETE. PT LAYING PEACEFULLY IN BED IN NAD. PT TAKEN UP TO [facility] VIA GURNEY WITH ALL BELONGINGS ACCOMPANIED BY EMT. VSS.
[2019-03-15] MEDS ORDERED: Metoclopramide 10mg/2ml Inj IVP PRN (08:45)
[2019-03-15] MEDS ORDERED: D5 1/2NS 1,000 ML IV SCH (08:45)
[2019-03-15 08:50] VITALS: BP 120/64
--- NOTE | 2019-03-15 08:50 | NUR ---
NURSE NOTES: PATIENT ARRIVED TO FLOOR VIA GURNEY AOX4. AMBULATORY. GAIT STEADY. C/O NAUSEA AND ABDOMINAL PAIN. BELONGINGS CHECKED WITH TRANSPORTER. ALL BELONGINGS ACCOUNTED FOR. PATIENT IN BED. ORIENTED TO ROOM. BED IN LOW AND LOCKED POSITION. CALL LIGHT WITHIN REACH.MD CALLED OF PATIENT'S ARRIVAL TO GET ADMISSION ORDERS.
[2019-03-15] MEDS: Morphine Sulfate 2mg/ml Inj(IV/IM USE ONLY) IVP PRN ×2 (08:51→17:23)
[2019-03-15] MEDS ORDERED: Pyridoxine 50mg tab ORAL ONE (09:00)
--- NOTE | 2019-03-15 09:18 | Diagnostic Imaging Report ---
Indication: Pelvic pain and hyperemesis, patient Technique: Transabdominal and transvaginal images of the pelvis. Doppler interrogation of the bilateral ovaries Comparison: none Findings: Uterus measures 6.8 cm in length by 3.9 cm AP. Within the endometrium, there is a gestational sac. This demonstrates a pole with a crown-rump length of 4 mm. This corresponds an estimated gestational age of 6 weeks zero days. There is a yolk sac also visualized. heart motion was visualized, but the heart is apparently too small to create sufficient signal for M-mode imaging and calculation of heart rate. No evidence of subchorionic hemorrhage. No myometrial abnormality. The right ovary measures 2.4 cm length. It demonstrates normal flow on color Doppler imaging. The left ovary cannot be visualized. There is a small amount of free cul-de-sac fluid 03/11/2019 Note that when compared to prior exam, the pole is now visible and the apparent visualized heart motion is also a new finding Impression: Single intrauterine , 6 weeks zero days estimated gestational age by measurement. There is apparent heart activity which is barely visible, probably due to very early stage of , and heart activity does not create sufficient signal to be measured under M-mode. Note that this was not visible on prior exam of 4 days earlier, nor was a pole Correlation with serial beta-hCGs and follow-up imaging recommended. Trace free cul-de-sac fluid, presumably physiologic
[2019-03-15] MEDS: D5NS 1,000 ML IV SCH ×2 (09:27→19:00)
--- NOTE | 2019-03-15 09:49 | NUR ---
NURSE NOTES: PLACED CALL TO DR. AVRIL WALTER FOR CONSULT PER DR. MADDEN REQUEST. LEFT MESSAGE AWAITING RETURN CALL.
--- NOTE | 2019-03-15 10:04 | History & Physical ---
History and Physical History & Physicial SOURCE OF INFORMATION: Patient and EMR. HISTORY OF PRESENT ILLNESS: The patient is a 18-year-old female. The patient reportedly is and is suffering from intolerable nausea and vomitus for the last 3 to 4 days. The patient reported adequate intake and could not hold any liquid given decrease in her stomach. Denies any hematemesis, denies any diarrhea. Denies any abdominal pain. Denies any bleeding per vagina. she left the hospital AMA and then returned today Initial vital signs in the emergency room shows a stable vital signs. REVIEW OF SYSTEMS: All 14 elements of review of systems reviewed as above. PAST MEDICAL HISTORY: Unremarkable. PAST SURGICAL HISTORY: Denies. OUTPATIENT MEDICATIONS: Denies. ALLERGIES: NKDA. SOCIAL HISTORY: Reported . Denies history of illicit drug abuse. PHYSICAL EXAMINATION: VITAL SIGNS: Blood pressure 125/80, temperature 98.2, pulse oximetry 98% on room air, respiratory rate 18, temperature 98.2. HEAD AND NECK: Atraumatic, normocephalic. CHEST: Clear to auscultation. HEART: S1, S2. Regular rate and rhythm. ABDOMEN: Soft. No organomegaly. LABORATORY DATA: Dated 03/15/2019, reviewed ASSESSMENT: 1. Hyperemesis gravidarum. 2. Hyponatremia. 3. Leukocytosis with no evidence of active infection. 4. Non compliance with medical advise 5. Substance Abuse PLAN OF CARE: The patient remains medically stable. I agree with the NPO, continue with IV hydration. OB has already been notified. I will follow with conservative managemet Anne Marie Gutierrez MD Mar 15, 2019 10:04
[2019-03-15 12:00] VITALS: BP 110/59
--- NOTE | 2019-03-15 12:43 | NUR ---
NURSE NOTES: NO RETURN CALL FROM DR. AVRIL WALTER. PLACED CALL TO OFFICE. WAS INFORMED MD IS OUT OF TOWN. SPOKE TO MUSA AND WILL CONTACT COVERING MD; DR. PERAZA. PATIENT INFORMED.
[2019-03-15] MEDS ORDERED: D5NS 1000ml IV ONE (13:49)
--- NOTE | 2019-03-15 14:36 | Consultation ---
Consult Note Consult Note GYNECOLOGY CONSULT CC: Nausea and vomiting of HPI: Patient is a 18yo G1 who has been readmitted with nausea and vomiting of and abdominal pain. She was previously admitted over the weekend and discharged home, however re-presented with persistent nausea, vomiting, and abdominal pain. She endorses marijuana use daily and in larger quantities. Currently she is endorsing nausea that is not completely relieved with her current medication regimen and she is receiving morphine for pain, however her pain is in her upper GI region and is likely 2/2 acid buildup in her stomach. No lower abdominal cramping, no bleeding. She believes she is having an HSV outbreak, and is requesting topical therapy. Her LMP is approximately 01/31/19, she would be 6w1d with ROXY 11/07/19. This is consistent with her US dating today. ROS: Pertinent positives and negatives per HPI PMH: Denies PSH: Denies Meds: None currently, takes Acyclovir for HSV outbreaks Allergies: NKDA OBHx: G1, approximate LMP 01/31/19 GYNHx: +Hx of genital herpes. Denies hx of abnl Pap, was seen recently at a clinic, thinks she had a Pap but is unsure. SocHx: Lives with parents who are supportive. FOB involved. Endorses marijuana use daily, denies other illicit drugs FamHx: Non-contributory Vitals: BP 110/59, P 62, RR 19, Tlast 98.1, O2 100% RA Exam: Gen: NAD, A&O HEENT: MM slightly dry, OP clear Neck: No obvious thyromegaly CV: No tachycardia Pulm: No increased work of breathing Abd: Soft, mild TTP in epigastric region, no lower abdominal tenderness Pelvic: Deferred, no bleeding Ext: No calf TTP Labs: - UTox pending Test 03/15/19 05:50 White Blood Count 6.8 K/UL (4.8-10.8) Red Blood Count 3.87 M/UL (4.20-5.40) Hemoglobin 11.6 G/DL (12.0-16.0) Hematocrit 33.8 % (37.0-47.0) Mean Corpuscular Volume 87 FL (80-99) Mean Corpuscular Hemoglobin 29.9 PG (27.0-31.0) Mean Corpuscular Hemoglobin Concent 34.2 G/DL (32.0-36.0) Red Cell Distribution Width 10.5 % (11.6-14.8) Platelet Count 247 K/UL (150-450) Mean Platelet Volume 6.2 FL (6.5-10.1) Neutrophils (%) (Auto) 59.5 % (45.0-75.0) Lymphocytes (%) (Auto) 29.3 % (20.0-45.0) Monocytes (%) (Auto) 10.0 % (1.0-10.0) Eosinophils (%) (Auto) 0.2 % (0.0-3.0) Basophils (%) (Auto) 1.0 % (0.0-2.0) Urine Color Pale yellow Urine Appearance Clear Urine pH 6.5 (4.5-8.0) Urine Specific Myra 1.015 (1.005-1.035) Urine Protein Negative (NEGATIVE) Urine Glucose (UA) Negative (NEGATIVE) Urine Ketones Negative (NEGATIVE) Urine Blood Negative (NEGATIVE) Urine Nitrite Negative (NEGATIVE) Urine Bilirubin Negative (NEGATIVE) Urine Urobilinogen Normal MG/DL (0.0-1.0) Urine Leukocyte Esterase 1+ (NEGATIVE) Urine RBC 0-2 /HPF (0 - 2) Urine WBC 2-4 /HPF (0 - 2) Urine Squamous Epithelial Cells Moderate /LPF (NONE/OCC) Urine Bacteria Few /HPF (NONE) Sodium Level 141 MMOL/L (136-145) Potassium Level 3.1 MMOL/L (3.5-5.1) Chloride Level 106 MMOL/L (98-107) Carbon Dioxide Level 21 MMOL/L (21-32) Anion Gap 14 mmol/L (5-15) Blood Urea Nitrogen 2 mg/dL (7-18) Creatinine 0.5 MG/DL (0.55-1.30) Estimat Glomerular Filtration Rate > 60 mL/min (>60) Glucose Level 99 MG/DL (74-106) Calcium Level 9.2 MG/DL (8.5-10.1) Human Chorionic Gonadotropin, Quant 54888 mIU/mL (1-6) Imaging: Findings: Uterus measures 6.8 cm in length by 3.9 cm AP. Within the endometrium, there is a gestational sac. This demonstrates a pole with a crown-rump length of 4 mm. This corresponds an estimated gestational age of 6 weeks zero days. There is a yolk sac also visualized. heart motion was visualized, but the heart is apparently too small to create sufficient signal for M-mode imaging and calculation of heart rate. No evidence of subchorionic hemorrhage. No myometrial abnormality. The right ovary measures 2.4 cm length. It demonstrates normal flow on color Doppler imaging. The left ovary cannot be visualized. There is a small amount of free cul-de-sac fluid 03/11/2019 Note that when compared to prior exam, the pole is now visible and the apparent visualized heart motion is also a new finding Impression: Single intrauterine , 6 weeks zero days estimated gestational age by measurement. There is apparent heart activity which is barely visible, probably due to very early stage of , and heart activity does not create sufficient signal to be measured under M-mode. Note that this was not visible on prior exam of 4 days earlier, nor was a pole Correlation with serial beta- hCGs and follow-up imaging recommended. Trace free cul-de-sac fluid, presumably physiologic Assessment/Plan 18yo G1 at 6w1d by LMP c/w US today, admitted with nausea/vomiting of , failed outpatient management over the weekend - Banana Bag ordered to be given fernando - D/C Reglan since patient's symptoms not improving - Start Zofran 6mg q6h scheduled - Reglan ordered 10mg q6h to be staggered with Zofran for breakthrough nausea - Pepcid IV 20mg BID ordered - Recommend limiting morphine administration and attempting to relieve pain with Tylenol NH - Recommend showers which can be helpful for marijuana-cessation induced nausea of - Attempted to order topical treatment for HSV outbreak, however topical Zovirax not on formulary - PO trial with crackers and juice once nausea improves - avoid strict liquid diet if possible since can exacerbate nausea of - Discharge home once patient tolerating PO - patient should continue her antiemetic regimen as an outpatient to ensure good management of her symptoms - Recommend f/u with [facility] within 1 week of discharge for continued monitoring of her condition - Recommend repeat US prior to discharge to ensure well-being/viability Contact me with any questions or concerns. Signed: MD Luis Felipe Clemens Carla M.D. Mar 15, 2019 14:36
[2019-03-15] MEDS ORDERED: Thiamine 100mg in D5W 55ml IVPB SCH (15:30)
[2019-03-15] MEDS ORDERED: Folic Acid 1 MG, Magnesium Sulfate 2,000 MG, Multivitamin - 12 Injection 10 ML in Sodiu... IV SCH (15:30)
[2019-03-15] MEDS: Acetaminophen 650 MG SUPP RECTAL PRN (15:35)
[2019-03-15 16:00] VITALS: BP 115/61
--- NOTE | 2019-03-15 16:57 | NUR ---
NURSE NOTES: PATIENT SEEN BY DR. PERAZA; NEW ORDERS RECEIVED. PATIENT SHOWERED. STATES SHE FEELS BETTER. AMBULATED FROM SHOWER ROOM TO ROOM. GAIT STEADY.
--- NOTE | 2019-03-15 17:24 | NUR ---
CASE MANAGEMENT: INITIAL REVIEW 18 YO F PRESENTED TO ED FROM HOME CC: N/V AND STOMACH ACHES PMHx: THC USE. SI:HYPEREMESIS GRAVIDARUM T 98.2 HR 59 RR 16 B/P 131/78 SATS 96% ON RA K 3.1 BUN 2 CR 0.5 UTOX (+THC) IS: REGLAN IV X1 MORPHINE IV X3 NS BOLUS X1 PATIENT ADMITTED TO MED/SURG 03/15/2019 @ 0605 DCP: PATIENT TO BE DISCHARGED TO HOME ONCE MEDICALLY CLEARED. PLAN OF CARE: NPO IV HYDRATION Addendum: 03/16/19 at 0717 by Marah Hernandez CM INTERQUAL MET
--- NOTE | 2019-03-15 19:14 | NUR ---
HAND-OFF: Report given to SHABNAM BOWMAN RN.
--- NOTE | 2019-03-15 19:30 | NUR ---
NURSE NOTES: Received report from MARANDA Barajas. Patient aaox4. Breathing unlabored without distress, discomfort, or sob. IV noted on right ac intact running fluid as ordered. Bed placed at the lowest with alarm, brake, and siderails up for safety. Call light placed within reach. Will continue to monitor and provide care as ordered.
[2019-03-15 20:00] VITALS: BP 120/70
--- NOTE | 2019-03-15 23:00 | NUR ---
NURSE NOTES: Reached Dr. Gutierrez to inform that patient said she is hungry, wants to eat, and that she thinks that not eating might be why she is having so much pain. Dr. Gutierrez said okay to advance diet to see if she can tolerate and if not to be back on NPO with ice chips and medication only. Will carry out the order and continue to monitor patient.
--- NOTE | 2019-03-15 23:45 | NUR ---
NURSE NOTES: Patient was provided with apple juice and than some crackers. Patient did not tolerate the advancement in diet and had scant amount of emesis which was yellowish color. Patient is stable, no signs of distress/distress noted or complained. Will place patient back into NPO diet. Patient verbalized understanding of NPO diet.
[2019-03-16] VITALS: BP 122/65
[2019-03-16] MEDS: Morphine Sulfate 2mg/ml Inj(IV/IM USE ONLY) IVP PRN (01:23)
[2019-03-16] MEDS: D5NS 1,000 ML IV SCH (02:22)
[2019-03-16] MEDS: Acetaminophen 650 MG SUPP RECTAL PRN (03:55)
[2019-03-16 04:00] VITALS: BP 124/75
--- NOTE | 2019-03-16 07:40 | NUR ---
NURSE NOTES: WALKING ROUNDS DONE WITH OUTGOING RN. PATIENT IN BED WITH C/O ABDOMINAL PAIN WITH NAUSEA PRESENT. OFFERED ANTI-EMETIC BUT REFUSED. MORPHINE NOT DUE UNTIL LATER TOLD BY THE NIGHT RN AND DAY RN. EXPLAINED TO PATIENT THAT SHE IS IN HER 1ST TRIMESTER AND WILL HAVE MORNING SICKNESS. PATIENT STATES SHE HAS ABDOMINAL PAIN AND WOULD NOT ACKNOWLEDGE HER .
--- NOTE | 2019-03-16 07:55 | NUR ---
HAND-OFF: Report given to MARANDA Barajas.
--- NOTE | 2019-03-16 08:00 | NUR ---
AMA: SEE AMA FORM. PATIENT WANTS TO LEAVE AMA. STATES SHE WILL LIKE TO GOT TO A HOSPITAL THAT HAS AN OB/GYNE FLOOR. EXPLAINED RISK FACTORS OF LEAVING AMA. PATIENT VERBALIZED UNDERSTANDING. PATIENT SIGNED AMA FORM. IV D'CD, ID BAND REMOVED.
--- NOTE | 2019-03-17 13:13 | Discharge Summary ---
Discharge Summary Discharge Summary _ DATE OF ADMISSION: 03/15/2019 DATE OF DISCHARGE: 03/16/2019 Patient left AGAINST MEDICAL ADVICE REASON FOR ADMISSION: 18 years old female with intolerable nausea and vomiting for the last few days left the hospital AGAINST MEDICAL ADVICE on the prior visit and returned again. She denied hematemesis or diarrhea. She denied abdominal pain. She denied vaginal bleeding. Vital signs were stable. Laboratory work-up revealed mild anemia with hemoglobin 11.6, hematocrit 33.8. No leukocytosis. Potassium 3.1. hCG 87495. Urine toxicology screen was positive for marijuana. OB ultrasound first trimester revealed single intrauterine 6 weeks 0 days; estimated gestational age by measurement. There was apparent heart activity , barely visible, probably due to the very early stage of . That was not visible on the prior exam , nor was a pole. Patient subsequently admitted to medical surgical floor for further management. CONSULTANTS: SHOE STICKS REPAIRER Dr. Briscoe [facility] COURSE: Patient admitted to medical surgical floor. Patient started on the IV fluids patient and was kept n.p.o. Symptomatic treatment provided. Potassium was replaced. SHOE STICKS REPAIRER seen and evaluated patient. Patient started on the IV fluids with minerals and vitamins/ banana bag. Patient started on Zofran [id number]. Reglan was continued only for breakthrough nausea. Patient started on PPI with IV Pepcid. SHOE STICKS REPAIRER recommended to limit morphine with attempt to relieve pain and continue Tylenol per rectum. SHOE STICKS REPAIRER recommended shower , which could be helpful for marijuana cessation induced nausea in . Unable to get topical treatment for HCV outbreak , since topical Zovirax was not on formulary. SHOE STICKS REPAIRER recommended to start p.o. trial with crackers and juice , once nausea improved and avoid strict liquid diet if possible , since this can exacerbate nausea of . Patient was recommended to follow-up with SHOE STICKS REPAIRER within 1 week of discharge to continue monitoring her condition. hCG showed progressive [place] 67605 on 03/11, [place] [address]14 on 03/24 [place] [address] on this admission. Patient decided to leave AGAINST MEDICAL ADVICE. She wanted to get to the hospital which has the SHOE STICKS REPAIRER floor. The risks and consequences of signing AGAINST MEDICAL ADVICE were discussed with patient in detail. Patient verbalized understanding, nevertheless signed AMA form and left. FINAL DIAGNOSES: Hyperemesis gravidarum Noncompliance Marijuana use daily Hypokalemia History of genital herpes I have been assigned to dictate discharge summary for this account. I was not involved in the patient's management. Gabbi Evangelista NP Mar 17, 2019 13:13
== END 2019-03-16 07:50 | disposition left against medical advice (07) | DRG 566 ==
LOC: EMR 05:34 → 3E 06:05 → EDBEDREQ 06:57
DX: O21.1 Hyperemesis gravidarum with metabolic disturbance (principal); Z3A.01 Less than 8 weeks gestation of pregnancy; Z91.19 Patient's noncompliance with other medical treatment and regimen; F12.90 Cannabis use, unspecified, uncomplicated
CPT/HCPCS: 36415; 76801; 80048; 80307; 81001; 84702; 85025; 96361; 96365; 96375; 99285; J2405; J2765; J8499

== ENCOUNTER 2019-08-21 17:18 | Emergency (ER) | payer MEDICAID, OTHER ==
[~2019-08-21] VITALS: Ht 160 cm; Wt 57.2 kg
--- NOTE | 2019-08-21 17:45 | NUR ---
ED Nurse Note: Pt walked in c/o N/V that started today. Pt denies abdominal pain/vaginal bleeding. Pt is 29 weeks . Respirations even and unlabored on room air. Vitals stable as documented.
--- NOTE | 2019-08-21 18:08 | Emergency Room Report ---
History of Present Illness General Chief Complaint: Vomiting Present Illness HPI Disclaimer: Please note that this report is being documented using DRAGON technology. This can lead to erroneous entry secondary to incorrect interpretation by the dictating instrument. HPI: This is a 19-year-old female at 28 weeks gestation presenting for vomiting and diarrhea. Symptoms began earlier today. She was in her usual state of health yesterday. She denied fever and chills but is noted one episode of loose stools prior to arrival and several episodes of emesis. Denied hematemesis or coffee grounds. Reports some fatigue and weakness. She states she cannot hold anything down but denies abdominal pain, dysuria, hematuria, vaginal bleeding, vaginal discharge, leakage of fluid, cramping or back pain. No other symptoms reported at this time. thus far is been unremarkable and she is taking prenatals. Has regular follow-up with her SANE NURSE. PMH: Denies PSH: Denies Allergies: Denies Social Hx: Occasional THC use Allergies: Coded Allergies: No Known Allergies (Unverified , 11/15/13) Patient History Now: Yes - 29 WEEKS Nursing Documentation-PMH Hx Cardiac Problems: No Hx Cancer: No Hx Gastrointestinal Problems: No - GENITAL HERPES Hx Neurological Problems: No Review of Systems All Other Systems: negative except mentioned in HPI Physical Exam Vital Signs Date Time Temp Pulse Resp B/P (MAP) Pulse Ox O2 Delivery O2 Flow Rate FiO2 08/21/19 17:29 98.4 97 18 108/63 (78) 95 Room Air General: Awake and alert, no acute distress HEENT: NC/AT. EOMI. moist mucous membranes Cardiovascular: RRR. S1 and S2 normal. No murmur appreciated Resp: Normal work of breathing. No cough, wheezing or crackles appreciated Abdomen: Gravid abdomen. Fundus above the umbilicus. Soft, nondistended, nontender Skin: Intact. No abrasions, laceration or rash over the exposed skin MSK: Normal tone and bulk. Moving all extremities. No obvious deformity. Neuro: Awake and alert. Mentating appropriately. Back/Spine: No back or flank pain Medical Decision Making Diagnostic Impression: Primary Impression: Additional Impressions: UTI (urinary tract infection) Nausea and vomiting in ER Course This is a 19-year-old G1, P0 female at 28 weeks gestation presenting for evaluation of 1 day nausea, vomiting and diarrhea. Differential includes was not limited to viral syndrome, gastritis, gastroenteritis, pancreatitis, cholecystitis, appendicitis, bowel obstruction, UTI, pyelonephritis, placenta previa, placenta abruption, spontaneous , labor to name a few. Patient is well-appearing with stable vital signs in no distress at this time. Will give antiemetics, IV fluids, check labs and sent for a pelvic ultrasound. CT/MRI/US Diagnostic Results CT/MRI/US Diagnostic Results : Impression Preliminary Findings Only See Final Report For Complete Findings US PELVIS: Single live IUP with an estimated gestational age of 29 weeks and 1 day. Normal heart tones measured 156 bpm. Anterior placenta without evidence of previa. PIERRE is within normal limits measuring 14.7 cm Cervix long and closed measured at 3.4 cm. Radiologist: Sohail Villalobos MD Study ready at 19:32 and initial results transmitted at 19:34 Reevaluation Time: 21:00 Last Vital Signs Date Time Temp Pulse Resp B/P (MAP) Pulse Ox O2 Delivery O2 Flow Rate FiO2 08/21/19 17:29 98.4 97 18 108/63 (78) 95 Room Air Reevaluation Impression Ultrasound of the pelvis shows a single intrauterine with estimated gestational age of 29 weeks and 1 day. Normal heart tones are measured with heart rate approximately 156 bpm. Placenta is anterior without evidence of previa. PIERRE nearly 15. Cervix is long and closed. Symptoms have been well controlled in the emergency department after IV fluids and antiemetics. Urinalysis concerning for acute urinary tract infection during . She will given a dose of Rocephin and discharged on Keflex with Zofran. She can follow-up with her SANE NURSE in the next few days and return with any new or worsening symptoms. She is otherwise well-appearing and stable for outpatient follow-up. Discussed reasons to return to the emergency department. She understands and agrees with this treatment plan. Disposition: HOME, SELF-CARE Condition: Stable Scripts Cephalexin* (KEFLEX*) 500 Mg Capsule 500 MG ORAL EVERY 12 HOURS for 10 Days, #20 CAP 0 Refills Prov: Ervin Urias MD 08/21/19 Ondansetron Odt* (ZOFRAN ODT*) 4 Mg Tab.rapdis 4 MG BC EVERY 8 HOURS PRN for Nausea & Vomiting, #10 TAB 0 Refills Prov: Ervin Urias MD 08/21/19 Ervin Urias MD Aug 21, 2019 18:08
[2019-08-21 18:21] LABS: HEMATOCRIT 36.7 % (37.0-47.0); HEMOGLOBIN 11.8 G/DL (12.0-16.0); MEAN CORPUSCULAR VOLUME 96 FL (80-99); PLATELET COUNT 246 K/UL (150-450); RED BLOOD COUNT 3.84 M/UL (4.20-5.40); RED CELL DISTRIBUTION WIDTH 12.2 % (11.6-14.8); WHITE BLOOD COUNT 12.9 K/UL (4.8-10.8)
[2019-08-21 18:22] LABS: BASOPHILS % (AUTO) 0.6 % (0.0-2.0); EOSINOPHILS % (AUTO) 0.1 % (0.0-3.0); LYMPHOCYTES % (AUTO) 4.9 % (20.0-45.0); MONOCYTES % (AUTO) 2.9 % (1.0-10.0); NEUTROPHILS % (AUTO) 91.5 % (45.0-75.0)
[2019-08-21 18:35] LABS: ANION GAP 12 mmol/L (5-15); BLOOD UREA NITROGEN 9 mg/dL (7-18); CALCIUM 8.9 MG/DL (8.5-10.1); CARBON DIOXIDE 22 MMOL/L (21-32); CHLORIDE 107 MMOL/L (98-107); CREATININE 0.4 MG/DL (0.55-1.30); POTASSIUM 3.9 MMOL/L (3.5-5.1); SODIUM 141 MMOL/L (136-145)
[2019-08-21 18:40] LABS: ALANINE AMINOTRANSFERASE 17 U/L (12-78); ALBUMIN 3.2 G/DL (3.4-5.0); ALBUMIN/GLOBULIN RATIO 0.8 (1.0-2.7); ALKALINE PHOSPHATASE 77 U/L (46-116); ASPARTATE AMINO TRANSFERASE 16 U/L (15-37); BILIRUBIN,TOTAL 0.2 MG/DL (0.2-1.0)
--- NOTE | 2019-08-21 18:47 | NUR ---
ED Nurse Note: Pt in radiology
[2019-08-21 18:49] VITALS: BP 108/63
--- NOTE | 2019-08-21 19:34 | Diagnostic Imaging Report ---
Indication: Positive . Pelvic pain Technique: Grayscale and duplex Doppler imaging of the pelvis performed utilizing a transabdominal scan and endovaginal scan. Comparison: None Findings: Single viable intrauterine cephalic presentation demonstrated. Cervix closed measuring 3.4 cm in length. Gestational age 29 weeks one day based on sonographic criteria. anatomy not assessed. PIERRE is 11.6 cm. Placenta is anterior. IMPRESSION: Single viable intrauterine gestational age estimated at 29 weeks one day. Normal PIERRE. No acute findings appreciated Note: A negative ultrasound evaluation does not insure well-being or positive outcome for the . monitoring including a nonstress test may be needed and clinical evaluation by COLLATERAL SPECIALIST is highly recommended.
[2019-08-21] MEDS ORDERED: ONDANSETRON ODT4 MG BC (20:20)
[2019-08-21 20:50] LABS: APPEARANCE,URINE SLIGHTLY CLOUDY; BILIRUBIN, URINE NEGATIVE (NEGATIVE); GLUCOSE, URINE (UA) NEGATIVE (NEGATIVE); KETONES,URINE 4+ (NEGATIVE); LEUKOCYTE ESTERASE ,URINE 2+ (NEGATIVE); NITRITE,URINE NEGATIVE (NEGATIVE); PH,URINE 5 (4.5-8.0); PROTEIN,URINE 1+ (NEGATIVE); UROBILINOGEN,URINE NORMAL MG/DL (0.0-1.0)
[2019-08-21 20:53] LABS: COLOR,URINE YELLOW
[2019-08-21] MEDS ORDERED: CEPHALEXIN500 MG ORAL (20:58)
[2019-08-21] MEDS ORDERED: cefTRIAXone 1 GM in NS 55 ML IVPB ONE (21:00)
[2019-08-21 21:15] VITALS: BP 110/72
--- NOTE | 2019-08-21 21:15 | NUR ---
ER DISCHARGE NOTE: Patient is cleared to be discharged per ERMD, pt is aox4, on room air, with stable vital signs. pt was given dc and prescription instructions, pt was able to verbalize understanding, pt id band and iv site removed without complications. pt is able to ambulate with steady gait. pt took all belongings.
== END 2019-08-21 21:15 | disposition home or self-care (01) ==
LOC: EMR 18:10
DX: O21.2 Late vomiting of pregnancy (principal); Z3A.28 28 weeks gestation of pregnancy; O23.43 Unspecified infection of urinary tract in pregnancy, third trimester
CPT/HCPCS: 36415; 76805; 80053; 81003; 83690; 85025; 86850; 86900; 86901; 87086; 96361; 96365; 96375; J0696; J2405; J7030; Z7502; 99284